=== PATIENT | male | born 1985 | race Caucasian/White ===

== ENCOUNTER 2018-09-15 12:09 | Emergency (ER) | payer OTHER ==
[2018-09-15] MEDS ORDERED: LORazepam 2 MG/ML INJ IVP ONE ×3 (12:23→14:06)
--- NOTE | 2018-09-15 12:23 | EDPHY ---
H & P Time Seen by Provider: 09/15/18 12:09 HPI/ROS: CHIEF COMPLAINT: Seizure HISTORY OF PRESENT ILLNESS: Patient is brought in by EMS. He does drink alcohol regularly and often has 1 in the morning but did not today because he was bringing his car into the [employer] dealership for an oil change. Per EMS he was seen by other parties at the car dealership to have a witnessed 5 min tonic- clonic seizure. Initially he was combative but then cooperative with EMS. On arrival he just feels little bit shaky. Denies headache chest pain or shortness of breath. REVIEW OF SYSTEMS: Eye: no change in vision ENT: no sore throat Cardiac: no chest pain or syncope Pulmonary: no cough or SOB Abdomen: no vomiting, diarrhea, abdominal pain Musculoskeletal: no back pain Skin: no rash Neuro: HPI Constitutional: no fever : no urinary symptoms A comprehensive 10 point review of systems is otherwise negative aside from elements mentioned in the history of present illness. PAST MEDICAL HISTORY: Inguinal hernia Social history: [facility] patient, frequent alcohol General Appearance: Alert and conversant, cooperative. Eyes: No scleral icterus. ENT, Mouth: Left-sided tongue abrasion. Respiratory: Normal respiratory effort, breath sounds equal, lungs are clear to auscultation. Cardiovascular: Regular rate and rhythm. Gastrointestinal: Abdomen is soft and non tender. Neurological: Alert, face symmetric, normal motor and sensory in extremities. Mildly tremulous but not confused. Skin: Warm and dry, no rashes. Musculoskeletal: No spinal tenderness. Psychiatric: Not agitated. Emergency Department course/MDM: Patient presents with history of seizure and low CO2 and tremor consistent with grand mal event. Differential considered including but not limited to intracranial mass, metabolic abnormality, alcohol withdrawal, subarachnoid hemorrhage. Negative CT scan. CO2 low at 13. Offered Ativan but the patient declined. 1406: Additional 2 mg IV Ativan ordered, results discussed with the patient, he is discussing with Sarah from case management options about referral to outpatient detox. He is a little bit tremulous but in general appears well. No recurrent seizure. More likely alcohol withdrawal seizure but no definitive diagnosis. Offered Ativan, patient refused. Warned this may put him at higher risk of recurrent seizure. Warned with standard seizure precautions including no driving, no alcohol. Smoking Status: Never smoked Constitutional: Initial Vital Signs Temperature (C) 36.7 C 09/15/18 12:13 Heart Rate 109 H 09/15/18 12:13 Respiratory Rate 18 09/15/18 12:13 Blood Pressure 177/117 H 09/15/18 12:13 O2 Sat (%) 96 09/15/18 12:13 O2 Delivery Mode Room Air Allergies/Adverse Reactions: No Known Allergies Allergy (Unverified 09/15/18 12:17) Home Medications: Medication Instructions Recorded NK [No Known Home Meds] 09/15/18 Medical Decision Making - Diagnostics Imaging Results: Imaging Impressions Head CT 09/15/18 12:24 Impression: There is no acute intracranial abnormality identified on this unenhanced CT evaluation. If there is further clinical concern regarding the patient's symptoms, MR imaging is suggested, if not otherwise contraindicated. Findings were discussed with JOSE LUIS JONES MD at 13:02, on 09/15/2018. Imaging: Discussed imaging studies w/ on call pharmacy technician Radiologist Differential Diagnosis: Differential diagnosis considered for a seizure including but not limited to electrolyte abnormality, alcohol withdrawal, medication noncompliance, head injury, and breakthrough seizure. - Data Points Laboratory Results: Laboratory Results 09/15/18 12:30 09/15/18 12:30 09/15/18 09/15/18 12:30 12:30 WBC 6.33 10^3/uL 10^3/uL (3.80-9.50) RBC 4.70 10^6/uL 10^6/uL (4.40-6.38) Hgb 16.5 g/dL g/dL (13.7-17.5) Hct 46.9 % % (40.0-51.0) MCV 99.8 fL fL (81.5-99.8) MCH 35.1 pg H pg (27.9-34.1) MCHC 35.2 g/dL g/dL (32.4-36.7) RDW 11.8 % % (11.5-15.2) Plt Count 228 10^3/uL 10^3/uL (150-400) MPV 9.5 fL fL (8.7-11.7) Neut % (Auto) 63.2 % % (39.3-74.2) Lymph % (Auto) 21.5 % % (15.0-45.0) [place] % (Auto) 12.8 % % (4.5-13.0) Eos % (Auto) 1.3 % % (0.6-7.6) Baso % (Auto) 0.9 % % (0.3-1.7) Nucleat RBC Rel Count 0.0 % % (0.0-0.2) Absolute Neuts (auto) 4.00 10^3/uL 10^3/uL (1.70-6.50) Absolute Lymphs (auto) 1.36 10^3/uL 10^3/uL (1.00-3.00) Absolute Monos (auto) 0.81 10^3/uL H 10^3/uL (0.30-0.80) Absolute Eos (auto) 0.08 10^3/uL 10^3/uL (0.03-0.40) Absolute Basos (auto) 0.06 10^3/uL 10^3/uL (0.02-0.10) Absolute Nucleated RBC 0.00 10^3/uL 10^3/uL (0-0.01) Immature Gran % 0.3 % % (0.0-1.1) Immature Gran # 0.02 10^3/uL 10^3/uL (0.00-0.10) Sodium 136 mEq/L mEq/L (135-145) Potassium 3.7 mEq/L mEq/L (3.5-5.2) Chloride 94 mEq/L L mEq/L (97-110) Carbon Dioxide 13 mEq/l L mEq/l (22-31) Anion Gap 29 mEq/L H mEq/L (6-14) BUN 6 mg/dL L mg/dL (7-23) Creatinine 0.9 mg/dL mg/dL (0.7-1.3) Estimated GFR > 60 Glucose 187 mg/dL H mg/dL (70-100) Calcium 9.8 mg/dL mg/dL (8.5-10.4) Medications Given: Discontinued Medications Lorazepam (Ativan Injection) 1 mg IVP EDNOW ONE Stop: 09/15/18 12:24 Last Admin: 09/15/18 12:56 Dose: Not Given Lorazepam (Ativan Injection) 1 mg IVP EDNOW ONE Stop: 09/15/18 13:09 Last Admin: 09/15/18 13:09 Dose: 1 mg Lorazepam (Ativan Injection) 2 mg IVP EDNOW ONE Stop: 09/15/18 14:07 Last Admin: 09/15/18 14:22 Dose: Not Given Departure - Departure Disposition: Home, Routine, Self-Care Clinical Impression: New onset seizure Condition: Good Instructions: New-Onset Seizure in Adults (ED) Additional Instructions: Your CT scan did not show evidence of tumor or intracranial mass. You likely had a grand mal seizure. 1. No driving, dangerous activities such as riding a ski lift, swimming in a pool or other behavior that could put you or someone else at risk in the event of a recurrent seizure. You will need to be cleared by a primary care doctor or a neurologist to resume these activities. 2. Please return to the ED for recurrent seizure, headache, numbness, weakness, altered mental status or other concerns. 3. Please follow up with [facility] this week to schedule a follow-up appointment. Referrals: [facility] ,. [Edm Groups for Call Sched] - As per Instructions
[2018-09-15 12:39] LABS: PLATELET COUNT 228 10^3/uL (150-400)
--- NOTE | 2018-09-15 13:19 | CPEKG ---
Test Reason : OPEN Blood Pressure : / mmHG Vent. Rate : 107 BPM Atrial Rate : 108 BPM P-R Int : 138 ms QRS Dur : 087 ms QT Int : 340 ms P-R-T Axes : 079 081 074 degrees QTc Int : 454 ms Sinus tachycardia Atrial premature complex Confirmed by Jose Luis Jones ([id number]) on 09/15/2018 1:18:37 PM Referred By: JOSE LUIS JONES Confirmed By:Jose Luis Jones
[2018-09-15 14:48] VITALS: BP 162/85
--- NOTE | 2018-09-15 15:10 | ASMTCMCOM ---
CM Note CM Note Notes: Pt seen at the request of ED ALEXA Dumont. Pt. in [facility] by [facility] following a seizure. Pt admitted drinking 750ml of whiskey per night over the last six months. He experienced significant withdrawal symptoms prior to the seizure. He denied having prior seizures. Pt stated that he is estranged from his family and does not have a local support system. He is not currently employed and stated that he lives off of a trust fund. Pt reported that up until this point in his life his alcohol use has only been a problem for others around him but he believes he is ready to seek treatment. After discussing treatment options the pt. requested information to take home and research on his own. Pt was provided with [facility] contact information and procedure for inpatient treatment as well as a number of private pay resources and and treatment centers. CM available for support as needed. Date Signed: 09/15/2018 03:10 PM Electronically Signed By:Lalitha Quispe LCSW
== END 2018-09-15 14:49 | disposition home or self-care (01) ==
DX: R56.9 Unspecified convulsions (principal); R09.02 Hypoxemia
CPT/HCPCS: 96374; J2060